=== PATIENT | male | born 1990 | race Caucasian/White ===

== ENCOUNTER 2021-07-13 19:16 | Emergency (ER) | payer OTHER ==
[2021-07-13 19:23] VITALS: BP 122/66
--- NOTE | 2021-07-13 19:29 | ED Physician Documentation ---
PD HPI OPHTHO - Stated complaint Stated Complaint: LEFT EYE PX - Chief complaint Chief Complaint: Heent - History obtained from History obtained from: Patient - Additional information Additional information: 31-year-old gentleman got a piece of metal in his eye at work yesterday. No visual deficit. This is despite wearing eye protection. Review of Systems Constitutional: reports: Reviewed and negative Eyes: reports: Reviewed and negative Respiratory: reports: Reviewed and negative PD PAST MEDICAL HISTORY - Present Medications Home Medications: Ambulatory Orders Medication Instructions Recorded Confirmed Erythromycin Base [Erythromycin 1 appful OP 5XD 7 Days #1 gm 07/13/21 Ophthalmic Ointment] - Allergies Allergies/Adverse Reactions: Allergies Allergy/AdvReac Type Severity Reaction Status Date / Time No Known Drug Allergies Allergy Verified 07/13/21 19:22 PD ED PE NORMAL - Vitals Vital signs reviewed: Yes - General General: Alert and oriented X 3, No acute distress - HEENT HEENT: PERRL, EOMI, Other (Around 7:00 on the left eye almost to the conjunctive there is a metallic corneal foreign body) - Neck Neck: Supple, no meningeal sign, No bony TTP - Neuro Neuro: Alert and oriented X 3, Normal speech Results - Vitals Vitals: Vital Signs - 24 hr 07/13/21 19:17 Temperature 36.6 C Heart Rate 96 Respiratory 16 Rate Blood Pressure 122/66 O2 Saturation 98 Oxygen O2 Source Room air Procedures - FB removal FB location: Other FB removal preparation: Local anesthesia-specify Removal method: Other (After topical proparacaine I was able to remove the corneal foreign body with a combination of moistened Q-tip and ophthalmic bur. There was a residual rust ring.) Departure - Departure Disposition: 01 Home, Self Care Clinical Impression: Corneal foreign body Condition: Good Record reviewed to determine appropriate education?: Yes Instructions: ED Foreign Body Cornea W Rust Ring Prescriptions: Erythromycin Base [Erythromycin Ophthalmic Ointment] 1 appful OP 5XD 7 Days #1 gm Comments: You do have a residual "rust ring" You should follow-up with an criminalist when you get home on Friday for evaluation and they have some tools available to them that I do not for removal of that. Return for new or worsening symptoms.
[2021-07-13] MEDS ORDERED: ERYTHROMYCIN OPHTH OINT 1 GM TUBE LEFTEYE STA (19:40)
== END 2021-07-13 20:16 | disposition home or self-care (01) ==
LOC: ED 19:16
DX: T15.02XA Foreign body in cornea, left eye, initial encounter (principal); X58.XXXA Exposure to other specified factors, initial encounter; Y92.89 Other specified places as the place of occurrence of the external cause; Y99.0 Civilian activity done for income or pay
CPT/HCPCS: 65220; 99282; J3490; 1040M